=== PATIENT | male | born 1950 | race Two or more races ===

== ENCOUNTER 2019-08-12 12:11 | Emergency (ER) | payer OTHER ==
[~2019-08-12] VITALS: Ht 167.6 cm; Wt 88.9 kg
[2019-08-12 14:31] VITALS: BP 137/81
[2019-08-12] MEDS ORDERED: HYDROcodone-ACET 5/325MG TAB PO ONE (15:00)
== END 2019-08-12 15:19 | disposition home or self-care (01) ==
LOC: ER 12:11
DX: M77.9 Enthesopathy, unspecified (principal); M25.511 Pain in right shoulder; I25.10 Atherosclerotic heart disease of native coronary artery without angina pectoris; E78.5 Hyperlipidemia, unspecified
CPT/HCPCS: 73030

== ENCOUNTER 2019-11-30 07:00 | Day surgery (SDC) | payer OTHER ==
[~2019-11-30] VITALS: Ht 170.2 cm; Wt 87.1 kg
[~2019-11-30 07:00] MED LIST changes: -D5W/SOD CHL 0.45% 1,000 ML IV ONE; -HYDROcodone-ACET 5/325MG TAB PO ONE; -MORPHINE SULF INJ 2 MG/ML SYRINGE 1ML IV ONE; -ONDANSETRON HCL 4 MG/2 ML VIAL IV ONE; -SODIUM CHLORIDE 0.9% 500 ML IVB ONE
[2019-11-30] MEDS ORDERED: IODIXANOL 320MG/ML 100ML BTL IV ONE (07:21)
[2019-11-30] MEDS ORDERED: LIDOCAINE 2%HCL (LOCAL ANESTH.) INJ 20ML MDV ONE (07:21)
[2019-11-30] MEDS ORDERED: ANGIOMAX 250 MG VIAL IV ONE (07:53)
[2019-11-30] MEDS ORDERED: VERAPAMIL 2.5MG/ML INJ 2ML VIAL IV ONE (07:54)
[2019-11-30] MEDS ORDERED: MIDAZOLAM HCL 1MG/1ML-2 ML VIAL ONE (07:54)
[2019-11-30] MEDS ORDERED: fentaNYL CITRATE 100 MCG/2 ML VL ONE (07:54)
[2019-11-30] MEDS ORDERED: SODIUM CHL 0.9% 0 ML ONE (07:54)
[2019-11-30] MEDS ORDERED: HEPARIN SODIUM (PORCINE) 5000 UNITS/ML 1ML VIAL ONE (07:54)
[2019-11-30] MEDS ORDERED: HYDROcodone-ACET 5/325MG TAB PO PRN (09:00)
[2019-11-30] MEDS ORDERED: ACETAMINOPHEN 500 MG TAB PO PRN (09:00)
[2019-11-30] MEDS ORDERED: ONDANSETRON HCL 4 MG/2 ML VIAL IV PRN (09:00)
== END 2019-11-30 10:35 | disposition home or self-care (01) ==
LOC: CATH 07:00
PROVIDERS: ATTEND Internal Medicine
DX: R94.39 Abnormal result of other cardiovascular function study (principal); I25.10 Atherosclerotic heart disease of native coronary artery without angina pectoris; I10 Essential (primary) hypertension; E78.5 Hyperlipidemia, unspecified; Z87.891 Personal history of nicotine dependence; Z95.5 Presence of coronary angioplasty implant and graft; Z79.82 Long term (current) use of aspirin; Z79.899 Other long term (current) drug therapy; Z98.890 Other specified postprocedural states; Z11.59 Encounter for screening for other viral diseases
CPT/HCPCS: 93458; C1769; C1894; J1644; J2250; J3010; J7030; Q9967; U0003; 99152

== ENCOUNTER → 2019-11-30 | Emergency (ER) | payer OTHER ==
[~2019-11-30] VITALS: Ht 170.2 cm; Wt 87.1 kg
[~2019-11-30] MED LIST: ATOR40TA52 PO; CHOL20007 PO; CLOP75TA28 PO; D5W/SOD CHL 0.45% 1,000 ML IV ONE; FINA5TAB4 PO; HYDROcodone-ACET 5/325MG TAB PO ONE; LISI-646 PO; MORPHINE SULF INJ 2 MG/ML SYRINGE 1ML IV ONE; ONDANSETRON HCL 4 MG/2 ML VIAL IV ONE; SODIUM CHLORIDE 0.9% 500 ML IVB ONE; TAMS0.4C36 PO
[2019-11-30 17:06] LABS: Basophils # (auto) 0 10 ^3/uL (0-0.2); Basophils % (auto) 0.2 % (0.0-2.0); Eosinophils # (auto) 0 10 ^3/uL (0-0.8); Eosinophils % (auto) 0.2 % (0.0-7.0); Hematocrit 45.4 % (41.0-53.0); Hemoglobin 15.5 g/dL (13.5-17.5); Lymphocytes % (auto) 10.4 % (10.0-50.0); Mean Corpuscular Hemoglobin 30.9 pg (28.0-32.0); Mean Corpuscular Hgb Conc. 34.1 g/dL (32.0-36.0); Mean Corpuscular Volume 90.7 fL (80.0-100.0); Monocytes # (auto) 0.3 10 ^3/uL (0-1.3); Monocytes % (auto) 3.6 % (0.0-12.0); Neutrophils # (auto) 8.4 10 ^3/uL (1.6-8.6); Neutrophils % (auto) 85.6 % (37.0-80.0); Nucleated Red Blood Cells % 0.1 %; Platelet Count (auto) 150 10^3/uL (140-450); White Blood Cell 9.8 10^3/uL (4.4-10.8)
[2019-11-30 17:28] LABS: Alanine Aminotransferase 44 U/L (16-61); Albumin 4.3 g/dL (3.4-5.0); Anion Gap 12 (5-15); Aspartate Aminotransferase 25 U/L (15-37); BUN/Creatinine Ratio 21.5; Blood Urea Nitrogen 28 mg/dL (7-18); Calcium 9.4 mg/dL (8.5-10.1); Carbon Dioxide 20 mmol/L (21-32); Chloride 104 mmol/L (98-107); GFR African American 70 mL/min; GFR Non-African American 58 mL/min; Glucose 136 mg/dL (74-106); Lipase 87 U/L (73-393); Potassium 4.1 mmol/L (3.5-5.1); Sodium 136 mmol/L (136-145)
[2019-11-30 17:33] LABS: Alkaline Phosphatase 71 U/L (45-117); Bilirubin, Total 1.2 mg/dL (0.2-1.0)
[2019-11-30 20:39] VITALS: BP 136/67
== END | disposition home or self-care (01) ==
LOC: ER 15:48
DX: R10.9 Unspecified abdominal pain (principal); R53.1 Weakness; R51 Headache; R11.2 Nausea with vomiting, unspecified
CPT/HCPCS: 36415; 70450; 71046; 74176; 80053; 83690; 84484; 85025; 93005; 96361; 96365; 96375; 99285; J2270; J2405; J7040

== ENCOUNTER 2022-04-15 12:13 | Emergency (ER) | payer OTHER ==
[~2022-04-15] VITALS: Ht 172.7 cm; Wt 83.0 kg
[~2022-04-15 12:13] MED LIST changes: -LISI-646 PO; +LISI20TA28 PO
[2022-04-15] MEDS ORDERED: LIDOCAINE W/ EPINEPHRINE 2% INJ 20ML VIAL ONE (18:19)
[2022-04-15] MEDS ORDERED: TETANUS-DIPTH-ACEL PERTUSSIS 0.5ML SYR Tdap IM ONE (19:00)
[2022-04-15] MEDS ORDERED: NEOMYCIN-BACITRACIN-POLYM UNITDOSE PKG TOP OINT TOP ONE (19:00)
[2022-04-15 19:20] VITALS: BP 116/60
== END 2022-04-15 19:25 | disposition home or self-care (01) ==
LOC: ER 12:13
DX: S81.811A Laceration without foreign body, right lower leg, initial encounter (principal); I10 Essential (primary) hypertension; I25.10 Atherosclerotic heart disease of native coronary artery without angina pectoris; I25.2 Old myocardial infarction; E78.5 Hyperlipidemia, unspecified; Z90.49 Acquired absence of other specified parts of digestive tract; Z79.01 Long term (current) use of anticoagulants; Z79.899 Other long term (current) drug therapy; W26.8XXA Contact with other sharp object(s), not elsewhere classified, initial encounter; Y93.89 Activity, other specified; Y92.89 Other specified places as the place of occurrence of the external cause; Y99.8 Other external cause status
CPT/HCPCS: 12002; 90471; 90715; 99283; J2001

== ENCOUNTER 2022-04-26 11:09 | Emergency (ER) | payer OTHER ==
[~2022-04-26] VITALS: Ht 177.8 cm; Wt 83.0 kg
[2022-04-26 12:06] VITALS: BP 123/91
[2022-04-26] MEDS ORDERED: CEPH-510 PO (12:10)
== END 2022-04-26 12:18 | disposition home or self-care (01) ==
LOC: ER 11:09
DX: S81.812D Laceration without foreign body, left lower leg, subsequent encounter (principal); I10 Essential (primary) hypertension; I25.2 Old myocardial infarction; I25.10 Atherosclerotic heart disease of native coronary artery without angina pectoris; E78.5 Hyperlipidemia, unspecified; Z90.49 Acquired absence of other specified parts of digestive tract; Z79.01 Long term (current) use of anticoagulants; Z79.899 Other long term (current) drug therapy; X58.XXXD Exposure to other specified factors, subsequent encounter

== ENCOUNTER 2022-05-03 12:14 | Emergency (ER) | payer OTHER ==
[~2022-05-03] VITALS: Ht 175.3 cm; Wt 83.0 kg
[~2022-05-03 12:14] MED LIST changes: +CEPH-510 PO
[2022-05-03 13:23] VITALS: BP 141/92
== END 2022-05-03 14:14 | disposition home or self-care (01) ==
LOC: ER 12:15
DX: S80.12XD Contusion of left lower leg, subsequent encounter (principal); I10 Essential (primary) hypertension; I25.10 Atherosclerotic heart disease of native coronary artery without angina pectoris; I25.2 Old myocardial infarction; E78.5 Hyperlipidemia, unspecified; Z90.49 Acquired absence of other specified parts of digestive tract; Z79.01 Long term (current) use of anticoagulants; Z79.899 Other long term (current) drug therapy; X58.XXXD Exposure to other specified factors, subsequent encounter

== ENCOUNTER 2022-05-11 11:56 | Emergency (ER) | payer OTHER ==
[~2022-05-11] VITALS: Ht 167.6 cm; Wt 82.5 kg
[2022-05-11 13:19] VITALS: BP 158/94
== END 2022-05-11 13:29 | disposition home or self-care (01) ==
LOC: ER 11:59
DX: S81.812D Laceration without foreign body, left lower leg, subsequent encounter (principal); I10 Essential (primary) hypertension; I25.2 Old myocardial infarction; I25.10 Atherosclerotic heart disease of native coronary artery without angina pectoris; E78.5 Hyperlipidemia, unspecified; Z90.49 Acquired absence of other specified parts of digestive tract; Z79.01 Long term (current) use of anticoagulants; Z79.899 Other long term (current) drug therapy; X58.XXXD Exposure to other specified factors, subsequent encounter